=== PATIENT | male | born 1970 | race Caucasian/White ===

== ENCOUNTER 2016-09-30 15:29 | Emergency (ER) | payer OTHER ==
[~2016-09-30 15:29] MED LIST: PERCOCET1 TA1 PO; VISTARIL25 MG PO
--- NOTE | 2016-09-30 16:57 | DIAGNOSTIC IMAGING REPORT ---
PROCEDURE: XR RIBS UNILAT W/PA CHEST-RT INDICATION: FALL TECHNIQUE: Two views of the right ribs with single PA view chest. COMPARISON: Chest 08/28/2015 FINDINGS: RIGHT RIBS: No displaced rib fractures. No suspicious rib lesions. CHEST: Normal cardiomediastinal contour. Clear lungs without pleural effusion, pneumothorax, or contusion. The other visible osseous structures are intact. IMPRESSION: 1. Intact right ribs. 2. Normal chest without radiographic evidence of trauma.
--- NOTE | 2016-09-30 17:21 | ED ORDER SUMMARY ---
..... Patient: JUSTINA HOUGH OrderSheet [facility] VisitID: [id number] [address] [place] [address] 45y, M Registration Date/Time: 09/30/2016 ORDER SHEET Weight: 81.6 kg (stated) Allergies: Hydrocodone GENERAL ORDERS: Ribs Unilat w PA Chest Right Urgent (16:02 09/30/2016 HBivens A.R.N.P.) (Ack 16:16 LTapper) (17:06 MCampbell) MEDICATION ORDERS: Ultram PO 50 mg (NOW) (17:20 09/30/2016 HBivens A.R.N.P.) (Ack 17:39 ABarnum R.N.) (17:48 SRoberts R.N.) IV FLUIDS: ORDER SHEET NOTES: [Electronically signed by Milagros Lugo R.N. (17:52 09/30/2016)] [Electronically signed by Malini Ortiz.R.N.P. (17:55 09/30/2016)] [Electronically locked/signed by Milagros Lugo R.N. (17:52 09/30/2016)]
--- NOTE | 2016-09-30 17:21 | ED NURSING NOTES ---
Clinical Report - Nurses [facility] [address] [place] [address] 09/30/2016 15:29 Patient: JUSTINA HOUGH TRIAGE Triage time 15:48 Sep 30 2016. Acuity: LEVEL 4. Chief Complaint: FALL (was walking his dog, and he went after a cat fell down on his right side). --15:54 Raheel, December, R.N. 15:48 09/30/16. BP: 118/80. HR: 125. RR: 19. O2 saturation: 99%. Temp: 98.4 F. Pain level now: 06/05. --15:54 Raheel, December, R.N. Chief Complaint: FALL, onto a concrete surface and the ground. --15:59 Raheel, December, R.N. Weight: 81.6 kg stated. Height/Length: 68 inches Per Patient. BMI: 27.4. --15:47 , December, R.N. Medications Hydrochlorothiazide Oral. --15:50 , December, R.N. Allergies Hydrocodone.(rash) --15:49 , December, R.N. History Arrived by private vehicle. Historian: patient. PAST MEDICAL HX: Tetanus status: up-to-date. Immunizations: up-to-date. SOCIAL HX: Never smoker. Occasional alcohol use; consumes four beers a week. No drug use. ABUSE ASSESSMENT: No report of abuse. --15:54 Raheel, December, R.N. Location of injuries: right elbow, right forearm and right wrist. This occurred (2 days ago). --15:59 [place], December, R.N. PROBLEMS: Hypertension. --15:50 Raheel, December, R.N. Interventions ID band on patient. To treatment room. --15:54 Raheel, December, R.N. PHYSICAL ASSESSMENT Ambulatory to room. GENERAL / NEURO / PSYCH: Alert. Oriented X 4. Appears in pain. HEENT: Pupils equal, round and reactive to light. Head non-tender. RESPIRATORY: Chest wall injury. Chest wall tenderness. ( Fall on right side pain with palpation). CVS: Normal heart rate and rhythm. Pulses within normal limits. Capillary refill less than 2 seconds. GI / : Abdomen soft and nontender. EXTREMITIES: Extremities exhibit normal ROM. Neuro-vascular status intact to the extremity. Right elbow: superficial abrasion. Right wrist: superficial abrasion. SKIN: Skin is warm and dry. ( right elbow/forearm/wrist abrasion from fall). --15:55 Cindy Pickering R.N. NURSING PROGRESS NOTES Reassurance given. Two patient identifiers checked. Call light placed in reach. Side rails up x 1. Bed placed in lowest position. Brakes of bed on. --15:55 Cindy Pickering R.N. Patient ready for evaluation- chart flagged. --15:56 Cindy Pickering R.N. 17:33 09/30/2016 Ultram (TraMADol HCl) PO 50 mg given. Allergies verified, confirmed 5 rights and sedative warning given to the patient. --17:48 Milagros Lugo R.N. DISPOSITION / DISCHARGE 17:45. Condition at departure: improved. No learning barriers present. Discharge instructions provided and reviewed with the patient and family. Reviewed medication(s) side effects, precautions, dosing and course information. Prescription(s) given to the patient. Patient verbalized understanding. Written instructions provided in Urdu. The patient was discharged home and accompanied by family. He left the Emergency Department ambulatory and via private vehicle. Family member driving. Medication list reviewed and validated. --17:51 Milagros Lugo R.N. 17:49 09/30/16. BP: 148/88. HR: 102. RR: 22. O2 saturation: 100%. Temp: deferred. Pain level now: 02/02. 15:48 09/30/16. BP: 118/80. HR: 125. RR: 19. O2 saturation: 99%. Temp: 98.4 F. Pain level now: 06/05. --17:51 Milagros Lugo R.N. Locked/Released at 09/30/2016 17:52 by Milagros Lugo R.N.
--- NOTE | 2016-09-30 17:21 | ED CLINICAL REPORT ---
Clinical Report - Physicians/Mid Levels [facility] [address] [place] [address] 09/30/2016 15:29 Patient: JUSTINA HOUGH Time Seen: 15:58; initial patient contact, initial documentation, patient care assumed. Arrived- By private vehicle. Historian- patient. HISTORY OF PRESENT ILLNESS Chief Complaint: FALL. Location of injuries- chest. The injury occurred 2 days ago. Fell while walking and landed on a concrete surface; tripped. Occurred at home. The patient complains of moderate pain. No blow to the head, neck pain or seizure. Not dazed. 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 REVIEW OF SYSTEMS The patient has had moderate right-sided chest pain. He has had mild difficulty breathing (hurts to breathe). There has been no dyspnea on exertion or at rest, paroxysmal nocturnal dyspnea or wheezing. All systems otherwise negative, except as recorded above. PAST HISTORY See nurses notes. PROBLEMS: Hypertension. --15:50 Raheel, Cindy, R.N. Tetanus immunization status is up-to-date. SOCIAL HISTORY Never smoker. Occasional alcohol use; consumes beer. No drug use. No recent travel. Is a local resident. FAMILY HISTORY No significant family medical history. ADDITIONAL NOTES The nursing notes have been reviewed with agreement regarding the chief complaint, HPI, ROS, PMH and patient medications and allergies. PHYSICAL EXAM Vital Signs: 09/30/2016 15:48 BP: 118/80. HR: 125. RR: 19. O2 saturation: 99%. Temp: 98.4 F. Pain level now: 910. Have been reviewed as abnormal and appear to be correct. Blood pressure normal. Tachycardic. Respiratory rate normal. Temperature normal. Oxygen saturation normal. Appearance: Alert. Oriented X3. No acute distress. Head: Head non-tender. No swelling of head. Eyes: Pupils equal, round and reactive to light. EOM intact. ENT: No dental injury. Pharynx normal. Neck: Painless ROM. Non-tender. CVS: Tachycardia (ventricular rate = 120). Heart sounds abnormal. Pulses normal. Respiratory: Chest wall injury: moderate tenderness located in the middle, lower, right and anterior chest. No swelling. No laceration. No abrasion. No ecchymosis. No deformity. No injury to the costal cartilage, sternum, manubrium or xiphoid. No splinting present. No paradoxical movement. Breath sounds abnormal. Chest nontender. Abdomen: No visible injury. Soft and nontender. Back: No tenderness. ROM normal. Skin: Skin intact. Skin warm and dry. Normal skin color. Normal skin turgor. Extremities: Normal inspection. Pelvis stable. Extremities atraumatic. No lower extremity edema. Neuro: Oriented X 3. No motor deficit. No sensory deficit. LABS, X-RAYS, AND EKG X-Rays: Rib series negative. Sternum / Ribs X-rays: (IMPRESSION: 1. Intact right ribs. 2. Normal chest without radiographic evidence of trauma. Electronically Final signed by:Goyo Salazar MD 09/30/2016 5:00:47 PM). The X-rays were interpreted by the radiologist and contemporaneously by me. PROGRESS AND PROCEDURES Patient counseled in person regarding the patient's stable condition, test results and diagnosis. 17:20. Differential Diagnosis: Other possible considerations: pneumo, contusion, rib fx. Above considerations are based on history and physical exam. Differential diagnosis was discussed with patient. Disposition: Discharged home in good and improved condition (17:21). Condition: good and stable. CLINICAL IMPRESSION Single contusion to the right anterior chest.No hematoma or skin abrasion. Fall on same level by tripping. INSTRUCTIONS Warnings: GENERAL WARNINGS: Return or contact your physician immediately if your condition worsens or changes unexpectedly, if not improving as expected, or if other problems arise. SPECIFICALLY, return if you develop numbness or incontinence of feces (loss of bowel control) or urine (loss of bladder control). Prescription Medications: Ultram 50 mg tablets: take 1-2 orally every 6 hours as needed for pain. Dispense twenty (20). No refills. Substitution is permissible. Follow-up: Follow up with your doctor in about three days as needed. Call for an appointment. Summary of care provided to patient. Understanding of the discharge instructions verbalized by patient. (Electronically signed by Malini Ortiz A.R.N.P. 09/30/2016 17:55)
--- NOTE | 2016-09-30 17:21 | ED ORDER SUMMARY ---
..... Patient: JUSTINA HOUGH OrderSheet [facility] VisitID: [id number] [address] [place] [address] 45y, M Registration Date/Time: 09/30/2016 ORDER SHEET Weight: 81.6 kg (stated) Allergies: Hydrocodone GENERAL ORDERS: Ribs Unilat w PA Chest Right Urgent (16:02 09/30/2016 HBivens A.R.N.P.) (Ack 16:16 LTapper) (17:06 MCampbell) MEDICATION ORDERS: Ultram PO 50 mg (NOW) (17:20 09/30/2016 HBivens A.R.N.P.) (Ack 17:39 ABarnum R.N.) (17:48 SRoberts R.N.) IV FLUIDS: ORDER SHEET NOTES: [Electronically signed by Milagros Lugo R.N. (17:52 09/30/2016)] [Electronically signed by Malini Ortiz.R.N.P. (17:55 09/30/2016)] [Electronically locked/signed by Milagros Lugo R.N. (17:52 09/30/2016)]
--- NOTE | 2016-09-30 17:21 | ED NURSING NOTES ---
Clinical Report - Nurses [facility] [address] [place] [address] 09/30/2016 15:29 Patient: JUSTINA HOUGH TRIAGE Triage time 15:48 Sep 30 2016. Acuity: LEVEL 4. Chief Complaint: FALL (was walking his dog, and he went after a cat fell down on his right side). --15:54 Raheel, December, R.N. 15:48 09/30/16. BP: 118/80. HR: 125. RR: 19. O2 saturation: 99%. Temp: 98.4 F. Pain level now: 06/05. --15:54 Raheel, December, R.N. Chief Complaint: FALL, onto a concrete surface and the ground. --15:59 Raheel, December, R.N. Weight: 81.6 kg stated. Height/Length: 68 inches Per Patient. BMI: 27.4. --15:47 , December, R.N. Medications Hydrochlorothiazide Oral. --15:50 , December, R.N. Allergies Hydrocodone.(rash) --15:49 , December, R.N. History Arrived by private vehicle. Historian: patient. PAST MEDICAL HX: Tetanus status: up-to-date. Immunizations: up-to-date. SOCIAL HX: Never smoker. Occasional alcohol use; consumes four beers a week. No drug use. ABUSE ASSESSMENT: No report of abuse. --15:54 Raheel, December, R.N. Location of injuries: right elbow, right forearm and right wrist. This occurred (2 days ago). --15:59 [place], December, R.N. PROBLEMS: Hypertension. --15:50 Raheel, December, R.N. Interventions ID band on patient. To treatment room. --15:54 Raheel, December, R.N. PHYSICAL ASSESSMENT Ambulatory to room. GENERAL / NEURO / PSYCH: Alert. Oriented X 4. Appears in pain. HEENT: Pupils equal, round and reactive to light. Head non-tender. RESPIRATORY: Chest wall injury. Chest wall tenderness. ( Fall on right side pain with palpation). CVS: Normal heart rate and rhythm. Pulses within normal limits. Capillary refill less than 2 seconds. GI / : Abdomen soft and nontender. EXTREMITIES: Extremities exhibit normal ROM. Neuro-vascular status intact to the extremity. Right elbow: superficial abrasion. Right wrist: superficial abrasion. SKIN: Skin is warm and dry. ( right elbow/forearm/wrist abrasion from fall). --15:55 Cindy Pickering R.N. NURSING PROGRESS NOTES Reassurance given. Two patient identifiers checked. Call light placed in reach. Side rails up x 1. Bed placed in lowest position. Brakes of bed on. --15:55 Cindy Pickering R.N. Patient ready for evaluation- chart flagged. --15:56 Cindy Pickering R.N. 17:33 09/30/2016 Ultram (TraMADol HCl) PO 50 mg given. Allergies verified, confirmed 5 rights and sedative warning given to the patient. --17:48 Milagros Lugo R.N. DISPOSITION / DISCHARGE 17:45. Condition at departure: improved. No learning barriers present. Discharge instructions provided and reviewed with the patient and family. Reviewed medication(s) side effects, precautions, dosing and course information. Prescription(s) given to the patient. Patient verbalized understanding. Written instructions provided in Swedish. The patient was discharged home and accompanied by family. He left the Emergency Department ambulatory and via private vehicle. Family member driving. Medication list reviewed and validated. --17:51 Milagros Lugo R.N. 17:49 09/30/16. BP: 148/88. HR: 102. RR: 22. O2 saturation: 100%. Temp: deferred. Pain level now: 02/02. 15:48 09/30/16. BP: 118/80. HR: 125. RR: 19. O2 saturation: 99%. Temp: 98.4 F. Pain level now: 06/05. --17:51 Milagros Lugo R.N. Locked/Released at 09/30/2016 17:52 by Milagros Lugo R.N.
--- NOTE | 2016-09-30 17:21 | ED CLINICAL REPORT ---
Clinical Report - Physicians/Mid Levels [facility] [address] [place] [address] 09/30/2016 15:29 Patient: JUSTINA HOUGH Time Seen: 15:58; initial patient contact, initial documentation, patient care assumed. Arrived- By private vehicle. Historian- patient. HISTORY OF PRESENT ILLNESS Chief Complaint: FALL. Location of injuries- chest. The injury occurred 2 days ago. Fell while walking and landed on a concrete surface; tripped. Occurred at home. The patient complains of moderate pain. No blow to the head, neck pain or seizure. Not dazed. (went to clinic pilot captain, orders to go to Prov for chest xray, pt came here instead). REVIEW OF SYSTEMS The patient has had moderate right-sided chest pain. He has had mild difficulty breathing (hurts to breathe). There has been no dyspnea on exertion or at rest, paroxysmal nocturnal dyspnea or wheezing. All systems otherwise negative, except as recorded above. PAST HISTORY See nurses notes. PROBLEMS: Hypertension. --15:50 Raheel, Cindy, R.N. Tetanus immunization status is up-to-date. SOCIAL HISTORY Never smoker. Occasional alcohol use; consumes beer. No drug use. No recent travel. Is a local resident. FAMILY HISTORY No significant family medical history. ADDITIONAL NOTES The nursing notes have been reviewed with agreement regarding the chief complaint, HPI, ROS, PMH and patient medications and allergies. PHYSICAL EXAM Vital Signs: 09/30/2016 15:48 BP: 118/80. HR: 125. RR: 19. O2 saturation: 99%. Temp: 98.4 F. Pain level now: 910. Have been reviewed as abnormal and appear to be correct. Blood pressure normal. Tachycardic. Respiratory rate normal. Temperature normal. Oxygen saturation normal. Appearance: Alert. Oriented X3. No acute distress. Head: Head non-tender. No swelling of head. Eyes: Pupils equal, round and reactive to light. EOM intact. ENT: No dental injury. Pharynx normal. Neck: Painless ROM. Non-tender. CVS: Tachycardia (ventricular rate = 120). Heart sounds abnormal. Pulses normal. Respiratory: Chest wall injury: moderate tenderness located in the middle, lower, right and anterior chest. No swelling. No laceration. No abrasion. No ecchymosis. No deformity. No injury to the costal cartilage, sternum, manubrium or xiphoid. No splinting present. No paradoxical movement. Breath sounds abnormal. Chest nontender. Abdomen: No visible injury. Soft and nontender. Back: No tenderness. ROM normal. Skin: Skin intact. Skin warm and dry. Normal skin color. Normal skin turgor. Extremities: Normal inspection. Pelvis stable. Extremities atraumatic. No lower extremity edema. Neuro: Oriented X 3. No motor deficit. No sensory deficit. LABS, X-RAYS, AND EKG X-Rays: Rib series negative. Sternum / Ribs X-rays: (IMPRESSION: 1. Intact right ribs. 2. Normal chest without radiographic evidence of trauma. Electronically Final signed by:Goyo Salazar MD 09/30/2016 5:00:47 PM). The X-rays were interpreted by the radiologist and contemporaneously by me. PROGRESS AND PROCEDURES Patient counseled in person regarding the patient's stable condition, test results and diagnosis. 17:20. Differential Diagnosis: Other possible considerations: pneumo, contusion, rib fx. Above considerations are based on history and physical exam. Differential diagnosis was discussed with patient. Disposition: Discharged home in good and improved condition (17:21). Condition: good and stable. CLINICAL IMPRESSION Single contusion to the right anterior chest.No hematoma or skin abrasion. Fall on same level by tripping. INSTRUCTIONS Warnings: GENERAL WARNINGS: Return or contact your physician immediately if your condition worsens or changes unexpectedly, if not improving as expected, or if other problems arise. SPECIFICALLY, return if you develop numbness or incontinence of feces (loss of bowel control) or urine (loss of bladder control). Prescription Medications: Ultram 50 mg tablets: take 1-2 orally every 6 hours as needed for pain. Dispense twenty (20). No refills. Substitution is permissible. Follow-up: Follow up with your doctor in about three days as needed. Call for an appointment. Summary of care provided to patient. Understanding of the discharge instructions verbalized by patient. (Electronically signed by Malini Ortiz A.R.N.P. 09/30/2016 17:55)
--- NOTE | 2016-09-30 17:56 | ED DISCHARGE INSTRUCTIONS ---
Patient: JUSTINA HOUGH General Instructions [facility] VisitID: [id number] [place] [address] 45y, M Registration Date/Time: 09/30/2016 Single contusion to the right anterior chest.No hematoma or skin abrasion. Fall on same level by tripping. INSTRUCTIONS Warnings: GENERAL WARNINGS: Return or contact your physician immediately if your condition worsens or changes unexpectedly, if not improving as expected, or if other problems arise. SPECIFICALLY, return if you develop numbness or incontinence of feces (loss of bowel control) or urine (loss of bladder control). Prescription Medications: Ultram 50 mg tablets: take 1-2 orally every 6 hours as needed for pain. Dispense twenty (20). No refills. Substitution is permissible. Follow-up: Follow up with your doctor in about three days as needed. Call for an appointment. Summary of care provided to patient. Understanding of the discharge instructions verbalized by patient. ADDITIONAL INFORMATION Mechanical Fall You have had a fall today. It appears that the cause is mechanical. That means that you slipped, tripped or lost your balance. If your fall had been due to fainting or a seizure, further tests would be required. Home Care: Rest today and resume your normal activities when you are feeling back to normal. If you were injured during the fall, follow the advice from your doctor regarding care of your injury. You may use acetaminophen (Tylenol) or ibuprofen (Motrin, Advil) to control pain, unless another pain medicine was prescribed. [NOTE: If you have chronic liver or kidney disease or ever had a stomach ulcer or GI bleeding, talk with your doctor before using these medicines.] Fall Prevention: Was there anything that caused your fall that can be fixed, removed, or replaced? Make your home safe by keeping walkways clear of objects you may trip over. Use non-slip pads under rugs. Do not walk in poorly lit areas. Do not stand on chairs or wobbly ladders. Use caution when reaching overhead or looking upward. This position can cause a loss of balance. Be sure your shoes fit properly, have non-slip bottoms and are in good condition. Be cautious when going up and down curbs, and walking on uneven sidewalks. If your balance is poor, consider using a cane or walker. Stay as active as you can. Balance, flexibility, strength, and endurance all come from exercise. They all play a role in preventing falls. Follow Up with your doctor or as advised by our staff. Get Prompt Medical Attention if any of the following occur: Repeated mechanical falls, or unexplained falls Dizziness, fainting or seizure Severe headache Chest pain or shortness of breath Palpitations (very rapid or very slow or irregular heartbeat) Blood in vomit, stools (black or red color) Weakness of an arm or leg or one side of the face Difficulty with speech or vision Chest Contusion Acontusion is a bruise to the skin, muscle or ribs. It may cause pain, tenderness, swelling and a purplish discoloration. Contusions take a few days to a few weeks to heal. Home Care: Rest. You should not be doing any heavy lifting or strenuous exertion, or any activity that causes pain. You may use acetaminophen (Tylenol) or ibuprofen (Motrin, Advil) to control pain, unless another pain medicine was prescribed. [ NOTE: If you have chronic liver or kidney disease or ever had a stomach ulcer or GI bleeding, talk with your doctor before using these medicines.] Follow Up with your doctor during the next week or as directed. Get Prompt Medical Attention if any of the following occur: Shortness of breath Increasing chest pain with breathing Dizziness, weakness or fainting New or worsening of abdominal pain Fever of 100.4F (38C) or higher, or as directed by your healthcare provider Tramadol Hydrochloride Oral tablet What is this medicine? TRAMADOL (TRA ma dole) is a pain reliever. It is used to treat moderate to severe pain in adults. How should I use this medicine? Take this medicine by mouth with a full glass of water. Follow the directions on the prescription label. If the medicine upsets your stomach, take it with food or milk. Do not take more medicine than you are told to take. Talk to your white metal corrosion proofer regarding the use of this medicine in children. Special care may be needed. What side effects may I notice from receiving this medicine? Side effects that you should report to your doctor or health career development facilitator as soon as possible: allergic reactions like skin rash, itching or hives, swelling of the face, lips, or tongue breathing difficulties, wheezing confusion itching light headedness or fainting spells redness, blistering, peeling or loosening of the skin, including inside the mouth seizures Side effects that usually do not require medical attention (report to your doctor or health career development facilitator if they continue or are bothersome): constipation dizziness drowsiness headache nausea, vomiting What may interact with this medicine? Do not take this medicine with any of the following medications: MAOIs like Carbex, Eldepryl, Marplan, Nardil, and Parnate This medicine may also interact with the following medications: alcohol or medicines that contain alcohol antihistamines benzodiazepines bupropion carbamazepine or oxcarbazepine clozapine cyclobenzaprine digoxin furazolidone linezolid medicines for depression, anxiety, or psychotic disturbances medicines for migraine headache like almotriptan, eletriptan, frovatriptan, naratriptan, rizatriptan, sumatriptan, zolmitriptan medicines for pain like pentazocine, buprenorphine, butorphanol, meperidine, nalbuphine, and propoxyphene medicines for sleep muscle relaxants naltrexone phenobarbital phenothiazines like perphenazine, thioridazine, chlorpromazine, mesoridazine, fluphenazine, prochlorperazine, promazine, and trifluoperazine procarbazine warfarin What if I miss a dose? If you miss a dose, take it as soon as you can. If it is almost time for your next dose, take only that dose. Do not take double or extra doses. Where should I keep my medicine? Keep out of the reach of children. Store at room temperature between 15 and 30 degrees C (59 and 86 degrees F). Keep container tightly closed. Throw away any unused medicine after the expiration date. What should I tell my health care provider before I take this medicine? They need to know if you have any of these conditions: brain tumor depression drug abuse or addiction head injury if you frequently drink alcohol containing drinks kidney disease or trouble passing urine liver disease lung disease, asthma, or breathing problems seizures or epilepsy suicidal thoughts, plans, or attempt; a previous suicide attempt by you or a family member an unusual or allergic reaction to tramadol, codeine, other medicines, foods, dyes, or preservatives or trying to get breast-feeding What should I watch for while using this medicine? Tell your doctor or health career development facilitator if your pain does not go away, if it gets worse, or if you have new or a different type of pain. You may develop tolerance to the medicine. Tolerance means that you will need a higher dose of the medicine for pain relief. Tolerance is normal and is expected if you take this medicine for a long time. Do not suddenly stop taking your medicine because you may develop a severe reaction. Your body becomes used to the medicine. This does NOT mean you are addicted. Addiction is a behavior related to getting and using a drug for a non-medical reason. If you have pain, you have a medical reason to take pain medicine. Your doctor will tell you how much medicine to take. If your doctor wants you to stop the medicine, the dose will be slowly lowered over time to avoid any side effects. You may get drowsy or dizzy. Do not drive, use machinery, or do anything that needs mental alertness until you know how this medicine affects you. Do not stand or sit up quickly, especially if you are an older patient. This reduces the risk of dizzy or fainting spells. Alcohol can increase or decrease the effects of this medicine. Avoid alcoholic drinks. You may have constipation. Try to have a bowel movement at least every 2 to 3 days. If you do not have a bowel movement for 3 days, call your doctor or health career development facilitator. Your mouth may get dry. Chewing sugarless gum or sucking hard candy, and drinking plenty of water may help. Contact your doctor if the problem does not go away or is severe. You have been given the following additional information: Fall, Mechanical Chest Wall Contusion Tramadol Hydrochloride Oral tablet (Electronically signed by Malini Ortiz A.R.N.P. 09/30/2016 17:55)
--- NOTE | 2016-09-30 17:56 | ED MED RECONCILIATION SUMMARY ---
Patient: JUSTINA HOUGH Medication Reconciliation Report [facility] VisitID: [id number] [address] [place] [address] 45y, M Registration Date/Time: 09/30/2016 Weight: 81.6 kg Height/Length: 68 in. BMI: 27.4 ALLERGIES: Hydrocodone The patient's Home Medications are listed below: THE FOLLOWING MEDICATIONS NEED TO BE RECONCILED: Hydrochlorothiazide Oral The source(s) of the original Home Medication information: Not obtained. The following Medications were given to the patient in the Emergency Department: Ultram [PO] PO 50 mg, administered: 09/30/2016 5:33:00 PM The following Medications were prescribed to the patient: Ultram 50 mg tablets: take 1-2 orally every 6 hours as needed for pain. Dispense twenty (20). No refills. Substitution is permissible. -- Malini Ortiz A.R.N.P.
--- NOTE | 2016-09-30 17:56 | ED MAR SUMMARY ---
..... Medication Administration Record [facility] [address] [place] [address] Patient: JUSTINA HOUGH Visit ID: [id number] 45y, M Weight: 81.6 kg Height/Length: 68 in BMI: 27.4 ALLERGIES: Hydrocodone Given 17:33 09/30/2016 Milagros Lugo R.N. Medication Administered: ULTRAM [PO] (TRAMADOL HCL), Dose: 50 mg PO. Medication Ordered: Ultram PO 50 mg (NOW).
--- NOTE | 2016-09-30 17:56 | ED MAR SUMMARY ---
..... Medication Administration Record [facility] [address] [place] [address] Patient: JUSTINA HOUGH Visit ID: [id number] 45y, M Weight: 81.6 kg Height/Length: 68 in BMI: 27.4 ALLERGIES: Hydrocodone Given 17:33 09/30/2016 Milagros Lugo R.N. Medication Administered: ULTRAM [PO] (TRAMADOL HCL), Dose: 50 mg PO. Medication Ordered: Ultram PO 50 mg (NOW).
--- NOTE | 2016-09-30 17:56 | ED MED RECONCILIATION SUMMARY ---
Patient: JUSTINA HOUGH Medication Reconciliation Report [facility] VisitID: [id number] [address] [place] [address] 45y, M Registration Date/Time: 09/30/2016 Weight: 81.6 kg Height/Length: 68 in. BMI: 27.4 ALLERGIES: Hydrocodone The patient's Home Medications are listed below: THE FOLLOWING MEDICATIONS NEED TO BE RECONCILED: Hydrochlorothiazide Oral The source(s) of the original Home Medication information: Not obtained. The following Medications were given to the patient in the Emergency Department: Ultram [PO] PO 50 mg, administered: 09/30/2016 5:33:00 PM The following Medications were prescribed to the patient: Ultram 50 mg tablets: take 1-2 orally every 6 hours as needed for pain. Dispense twenty (20). No refills. Substitution is permissible. -- Malini Ortiz A.R.N.P.
== END 2016-09-30 17:45 | disposition home or self-care (01) ==
LOC: ED SRH 15:29
DX: S20.211A Contusion of right front wall of thorax, initial encounter (principal); W01.0XXA Fall on same level from slipping, tripping and stumbling without subsequent striking against object, initial encounter; Y93.01 Activity, walking, marching and hiking; Y92.009 Unspecified place in unspecified non-institutional (private) residence as the place of occurrence of the external cause; Y99.9 Unspecified external cause status; I10 Essential (primary) hypertension

== ENCOUNTER 2016-12-27 11:46 | Emergency (ER) | payer OTHER ==
--- NOTE | 2016-12-27 13:29 | DIAGNOSTIC IMAGING REPORT ---
PROCEDURE: XR HAND 3 OR 4 VIEWS - LEFT INDICATION: TRAUMA/INJURY TECHNIQUE: Four views. COMPARISON: None. FINDINGS: There is a fracture of the base of the middle phalanx of the fifth digit. There is also fracture through the base of the distal phalanx of the fourth digit. IMPRESSION: 1. Fractures of the fourth and fifth digits left hand.
--- NOTE | 2016-12-27 14:07 | ED CLINICAL REPORT ---
Clinical Report - Physicians/Mid Levels [facility] [address] [place] [address] 12/27/2016 11:46 [id number] Time Seen: 13:02 Dec 27 2016. Arrived- By private vehicle. Historian- patient. HISTORY OF PRESENT ILLNESS Chief Complaint: Injury to the left hand. 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 Occurred at home. Patient is experiencing moderate pain. Patient denies injury to the head or neck. ( 2 days prior to arrival on the first, patient sustained a twisting type of extension injury from a chain to his left fifth digit. 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 He is right-hand dominant. He has pain with any attempt of movement, he denies any paresthesias, denies laceration. Has iced, and take nsaid. He reports prior injury to his left fourth digit, his ring finger about 2 months previously, from a crush type of injury, never saw or had follow-up for such.). REVIEW OF SYSTEMS All systems otherwise negative, except as recorded above. PAST HISTORY The patient's dominant hand is the right. He has not had a prior injury to the same area. Problems: Contusion. Fall. Back Pain. Back Injury. Lumbar Strain. Lumbar Radiculopathy. Sciatica. Sprain. Rib Fracture. Cervical Strain. Myofascial Strain. Muscle Strain, Upper Extremity. Tetanus Status. Immunizations. Hypertension. Additional Surgeries: Eye surgery. Medications: Hydrochlorothiazide Oral. Allergies: Hydrocodone.(rash). SOCIAL HISTORY Regular alcohol use. History of drug use: marijuana. ADDITIONAL NOTES The nursing notes have been reviewed. PHYSICAL EXAM Vital Signs: 12/27/2016 12:14 BP: 165/101. HR: 106. RR: 20. O2 saturation: 99%. Temp: 98.2 F. Appearance: Alert. No apparent distress. Head: Head atraumatic. CVS: Normal heart rate and rhythm. Heart sounds normal. Respiratory: No respiratory distress. Breath sounds normal. Skin: Skin warm. Skin intact. Extremities: Left palm: No erythema or swelling. Left ring finger: mild tenderness of the DIP joint; limited movement secondary to pain (diminished flexion and extension) (at dip). Tip of left ring finger: mild tenderness subungual hematoma present. No swelling, laceration of tip of left ring finger, puncture wound or foreign body. No nail avulsion or exposed bone on the left ring finger or tip amputation of the left ring finger. Left little finger: moderate deformity consistent with a fracture and dislocation of the PIP joint (swelling, mild ecchymosis, no rom at pip/ dip. fair rom at MCP). No amputation present. Soft tissue tenderness present. Bony tenderness present. No signs of infection present. No wrist injury. Neuro, Vascular and Tendons: Vascular status intact. No pulse deficit present. Sensation intact. No sensory deficit or weakness. Neuro: Oriented X 3. PROGRESS AND PROCEDURES Splint Application: Time: 1355. Aluminum-foam volar splint applied to left finger. Splint applied by tech with direct supervision by me. Reassessed extremity following splint application. Neurovascular intact. Follow-up recommended for tomorrow. Course of Care: I discussed with DR. Cuellar (ORTHO ) space systems operations craftsman in ER, prefers f/u with hand surgeon I discussed case with Dr. Jeffery Mack, [facility], who reports he will see patient in his office tomorrow. Pt for splint. No signs of open fx. Patient is stable. Patient/family counseled. Disposition: Discharged. CLINICAL IMPRESSION Closed displaced middle phalanx fracture of the left little finger. Hypertension. Closed Left Ring Finger (Sub-acute Fx) Displaced. INSTRUCTIONS Apply ice. Elevate affected areas above chest level. Limit use of your left hand for seven days. Do not work for seven days. (12/28 12:[address] MACK [address] [place] [address]: [phone]). Prescription Medications: Ibuprofen 800 mg tablets: take 1 tablet orally every 8 hours as needed for pain. Dispense ten (10). No refill. Percocet 5 mg/325 mg: take 1 tablet orally every 6 hours as needed for pain. Dispense five (5). No refill. Substitution is permissible. Follow-up: Follow up with a specialist TOMORROW 12:45. (Electronically signed by Isha Hernandez P.A.-C 12/27/2016 14:34)
--- NOTE | 2016-12-27 14:07 | ED ORDER SUMMARY ---
..... Patient: JUSTINA HOUGH OrderSheet [facility] VisitID: [id number] [address] [place] [address] 46y, M Registration Date/Time: 12/27/2016 ORDER SHEET Weight: 83.9 kg (stated) Allergies: Hydrocodone GENERAL ORDERS: Hand 3 or 4V Left Urgent (12:20 12/27/2016 DMaziarka R.N. per protocol) (Ack 12:23 ADoerner) (14:01 DMaziarka R.N.) (14:01 KHoerner) Splint (Finger) (Left) (Small) (Aluminum Foam) (in full extension of 5th digit, shelly tape 4th digit to it as well) (13:33 12/27/2016 EKpurvilecarlos enrique P.A.-C) (14:01 DMaziarka R.N.) (14:01 ADoerner) MEDICATION ORDERS: Percocet PO 5/325 mg (HIGH ALERT MEDICATION, NOW) (13:39 12/27/2016 EKpurvilecarlos enrique P.A.-C) (Ack 14:01 DMaziarka R.N.) (14:17 DMaziarka R.N.) IV FLUIDS: ORDER SHEET NOTES: [Electronically signed by Vianney Willoughby R.N. (14:19 12/27/2016)] [Electronically signed by Isha Hernandez P.A.-C (14:34 12/27/2016)] [Electronically locked/signed by Vianney Willoughby R.N. (14:19 12/27/2016)]
--- NOTE | 2016-12-27 14:07 | ED NURSING NOTES ---
Clinical Report - Nurses [facility] [address] [place] [address] 12/27/2016 11:46 Patient: JUSTINA HOUGH TRIAGE Triage time 12:15. Acuity: LEVEL 4. Chief Complaint: INJURY TO LEFT HAND. Alert. --12:17 Vianney Willoughby R.N. 12:14 12/27/16. BP: 165/101. HR: 106. RR: 20. O2 saturation: 99%. Temp: 98.2 F. Pain level now 04/04. --12:17 Vianney Willoughby R.N. Weight: 83.9 kg stated. Height/Length: 68 inches Per Patient. BMI: 28.1. --12:15 Vianney Willoughby R.N. Medications Hydrochlorothiazide Oral. --12:16 Vianney Willoughby R.N. Allergies Hydrocodone.(rash) --12:16 Vianney Willoughby R.N. History Arrived by private vehicle. Primary physician (Jeanmarie). This occurred (about 2 days). Mechanism of injury: he sustained a twisting injury. Treatment VALIDATION MANAGER: Ice. PAST MEDICAL HX: Tetanus status: up-to-date. SOCIAL HX: Regular alcohol use. History of weekly drug use: marijuana. --12:17 Vianney Willoughby R.N. PROBLEMS: Contusion. Fall. Back Pain. Back Injury. Lumbar Strain. Lumbar Radiculopathy. Sciatica. Sprain. Cervical Strain. Myofascial Strain. Muscle Strain, Upper Extremity. Tetanus Status. Immunizations. Hypertension. --12:17 Vianney Willoughby R.N. ADDITIONAL SURGERIES: Eye surgery. --12:17 Vianney Willoughby R.N. PHYSICAL ASSESSMENT Ambulatory to room. GENERAL / NEURO / PSYCH: Oriented X 4. Alert. Appears in no acute distress. EXTREMITIES: Capillary refill is less than 2 seconds in the extremities. Hypothenar eminence, left hand: tenderness and swelling. SKIN: Skin intact. Skin is warm and dry. --12:18 Vianney Willoughby R.N. NURSING PROGRESS NOTES Two patient identifiers checked. Call light placed in reach. Side rails up x 1. Brakes of chair on. Patient ready for evaluation- ED physician notified. --12:18 Vianney Willoughby R.N. 14:17 12/27/2016 Percocet (Oxycodone-Acetaminophen) PO 10/650 mg Tablets 1 tab given. Allergies verified, confirmed 5 rights and sedative warning given to the patient. --14:17 Vianney Willoughby R.N. Aluminum-foam finger splint applied to left ring finger and little finger by tech. --14:18 Jaja Tai, ER Tech1. DISPOSITION / DISCHARGE Departure time: 14:17. Condition at departure: improved. No learning barriers present. Discharge instructions provided and reviewed with the patient. Patient verbalized understanding. Written instructions provided in [place]. The patient was discharged home and accompanied by spouse. He left the Emergency Department ambulatory and via private vehicle. Spouse driving. --14:17 Vianney Willoughby R.N. 14:13 12/27/16. BP: 142/65. HR: 80. RR: 16. O2 saturation: 98%. Pain level now 4/10. --14:17 Vianney Willoughby R.N. Locked/Released at 12/27/2016 14:19 by Vianney Willoughby R.N.
--- NOTE | 2016-12-27 14:07 | ED CLINICAL REPORT ---
Clinical Report - Physicians/Mid Levels [facility] [address] [place] [address] 12/27/2016 11:46 [id number] Time Seen: 13:02 Dec 27 2016. Arrived- By private vehicle. Historian- patient. HISTORY OF PRESENT ILLNESS Chief Complaint: Injury to the left hand. 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 Occurred at home. Patient is experiencing moderate pain. Patient denies injury to the head or neck. ( 2 days prior to arrival on the first, patient sustained a twisting type of extension injury from a chain to his left fifth digit. 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 He is right-hand dominant. He has pain with any attempt of movement, he denies any paresthesias, denies laceration. Has iced, and take nsaid. He reports prior injury to his left fourth digit, his ring finger about 2 months previously, from a crush type of injury, never saw or had follow-up for such.). REVIEW OF SYSTEMS All systems otherwise negative, except as recorded above. PAST HISTORY The patient's dominant hand is the right. He has not had a prior injury to the same area. Problems: Contusion. Fall. Back Pain. Back Injury. Lumbar Strain. Lumbar Radiculopathy. Sciatica. Sprain. Rib Fracture. Cervical Strain. Myofascial Strain. Muscle Strain, Upper Extremity. Tetanus Status. Immunizations. Hypertension. Additional Surgeries: Eye surgery. Medications: Hydrochlorothiazide Oral. Allergies: Hydrocodone.(rash). SOCIAL HISTORY Regular alcohol use. History of drug use: marijuana. ADDITIONAL NOTES The nursing notes have been reviewed. PHYSICAL EXAM Vital Signs: 12/27/2016 12:14 BP: 165/101. HR: 106. RR: 20. O2 saturation: 99%. Temp: 98.2 F. Appearance: Alert. No apparent distress. Head: Head atraumatic. CVS: Normal heart rate and rhythm. Heart sounds normal. Respiratory: No respiratory distress. Breath sounds normal. Skin: Skin warm. Skin intact. Extremities: Left palm: No erythema or swelling. Left ring finger: mild tenderness of the DIP joint; limited movement secondary to pain (diminished flexion and extension) (at dip). Tip of left ring finger: mild tenderness subungual hematoma present. No swelling, laceration of tip of left ring finger, puncture wound or foreign body. No nail avulsion or exposed bone on the left ring finger or tip amputation of the left ring finger. Left little finger: moderate deformity consistent with a fracture and dislocation of the PIP joint (swelling, mild ecchymosis, no rom at pip/ dip. fair rom at MCP). No amputation present. Soft tissue tenderness present. Bony tenderness present. No signs of infection present. No wrist injury. Neuro, Vascular and Tendons: Vascular status intact. No pulse deficit present. Sensation intact. No sensory deficit or weakness. Neuro: Oriented X 3. PROGRESS AND PROCEDURES Splint Application: Time: 1355. Aluminum-foam volar splint applied to left finger. Splint applied by tech with direct supervision by me. Reassessed extremity following splint application. Neurovascular intact. Follow-up recommended for tomorrow. Course of Care: I discussed with DR. Cuellar (ORTHO ) rangelands conservation laborer in ER, prefers f/u with hand surgeon I discussed case with Dr. Jeffery Mack, [facility], who reports he will see patient in his office tomorrow. Pt for splint. No signs of open fx. Patient is stable. Patient/family counseled. Disposition: Discharged. CLINICAL IMPRESSION Closed displaced middle phalanx fracture of the left little finger. Hypertension. Closed Left Ring Finger (Sub-acute Fx) Displaced. INSTRUCTIONS Apply ice. Elevate affected areas above chest level. Limit use of your left hand for seven days. Do not work for seven days. (12/28 12:[address] MACK [address] [place] [address]: [phone]). Prescription Medications: Ibuprofen 800 mg tablets: take 1 tablet orally every 8 hours as needed for pain. Dispense ten (10). No refill. Percocet 5 mg/325 mg: take 1 tablet orally every 6 hours as needed for pain. Dispense five (5). No refill. Substitution is permissible. Follow-up: Follow up with a specialist TOMORROW 12:45. (Electronically signed by Isha Hernandez P.A.-C 12/27/2016 14:34)
--- NOTE | 2016-12-27 14:07 | ED NURSING NOTES ---
Clinical Report - Nurses [facility] [address] [place] [address] 12/27/2016 11:46 Patient: JUSTINA HOUGH TRIAGE Triage time 12:15. Acuity: LEVEL 4. Chief Complaint: INJURY TO LEFT HAND. Alert. --12:17 Vianney Willoughby R.N. 12:14 12/27/16. BP: 165/101. HR: 106. RR: 20. O2 saturation: 99%. Temp: 98.2 F. Pain level now 04/04. --12:17 Vianney Willoughby R.N. Weight: 83.9 kg stated. Height/Length: 68 inches Per Patient. BMI: 28.1. --12:15 Vianney Willoughby R.N. Medications Hydrochlorothiazide Oral. --12:16 Vianney Willoughby R.N. Allergies Hydrocodone.(rash) --12:16 Vianney Willoughby R.N. History Arrived by private vehicle. Primary physician (Jeanmarie). This occurred (about 2 days). Mechanism of injury: he sustained a twisting injury. 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 PAST MEDICAL HX: Tetanus status: up-to-date. SOCIAL HX: Regular alcohol use. History of weekly drug use: marijuana. --12:17 Vianney Willoughby R.N. PROBLEMS: Contusion. Fall. Back Pain. Back Injury. Lumbar Strain. Lumbar Radiculopathy. Sciatica. Sprain. Cervical Strain. Myofascial Strain. Muscle Strain, Upper Extremity. Tetanus Status. Immunizations. Hypertension. --12:17 Vianney Willoughby R.N. ADDITIONAL SURGERIES: Eye surgery. --12:17 Vianney Willoughby R.N. PHYSICAL ASSESSMENT Ambulatory to room. GENERAL / NEURO / PSYCH: Oriented X 4. Alert. Appears in no acute distress. EXTREMITIES: Capillary refill is less than 2 seconds in the extremities. Hypothenar eminence, left hand: tenderness and swelling. SKIN: Skin intact. Skin is warm and dry. --12:18 Vianney Willoughby R.N. NURSING PROGRESS NOTES Two patient identifiers checked. Call light placed in reach. Side rails up x 1. Brakes of chair on. Patient ready for evaluation- ED physician notified. --12:18 Vianney Willoughby R.N. 14:17 12/27/2016 Percocet (Oxycodone-Acetaminophen) PO 10/650 mg Tablets 1 tab given. Allergies verified, confirmed 5 rights and sedative warning given to the patient. --14:17 Vianney Willoughby R.N. Aluminum-foam finger splint applied to left ring finger and little finger by tech. --14:18 Jaja Tai, ER Tech1. DISPOSITION / DISCHARGE Departure time: 14:17. Condition at departure: improved. No learning barriers present. Discharge instructions provided and reviewed with the patient. Patient verbalized understanding. Written instructions provided in Tristanian. The patient was discharged home and accompanied by spouse. He left the Emergency Department ambulatory and via private vehicle. Spouse driving. --14:17 Vianney Willoughby R.N. 14:13 12/27/16. BP: 142/65. HR: 80. RR: 16. O2 saturation: 98%. Pain level now 4/10. --14:17 Vianney Willoughby R.N. Locked/Released at 12/27/2016 14:19 by Vianney Willoughby R.N.
--- NOTE | 2016-12-27 14:07 | ED ORDER SUMMARY ---
..... Patient: JUSTINA HOUGH OrderSheet [facility] VisitID: [id number] [address] [place] [address] 46y, M Registration Date/Time: 12/27/2016 ORDER SHEET Weight: 83.9 kg (stated) Allergies: Hydrocodone GENERAL ORDERS: Hand 3 or 4V Left Urgent (12:20 12/27/2016 DMaziarka R.N. per protocol) (Ack 12:23 ADoerner) (14:01 DMaziarka R.N.) (14:01 KHoerner) Splint (Finger) (Left) (Small) (Aluminum Foam) (in full extension of 5th digit, shelly tape 4th digit to it as well) (13:33 12/27/2016 EKpurvilecarlos enrique P.A.-C) (14:01 DMaziarka R.N.) (14:01 ADoerner) MEDICATION ORDERS: Percocet PO 5/325 mg (HIGH ALERT MEDICATION, NOW) (13:39 12/27/2016 EKpurvilecarlos enrique P.A.-C) (Ack 14:01 DMaziarka R.N.) (14:17 DMaziarka R.N.) IV FLUIDS: ORDER SHEET NOTES: [Electronically signed by Vianney Willoughby R.N. (14:19 12/27/2016)] [Electronically signed by Isha Hernandez P.A.-C (14:34 12/27/2016)] [Electronically locked/signed by Vianney Willoughby R.N. (14:19 12/27/2016)]
--- NOTE | 2016-12-27 14:34 | ED DISCHARGE INSTRUCTIONS ---
Patient: JUSTINA HOUGH General Instructions [facility] VisitID: [id number] [place] [address] 46y, M Registration Date/Time: 12/27/2016 Closed displaced middle phalanx fracture of the left little finger. Hypertension. Closed Left Ring Finger (Sub-acute Fx) Displaced. INSTRUCTIONS Apply ice. Elevate affected areas above chest level. Limit use of your left hand for seven days. Do not work for seven days. (12/28 12:[address] FREDERICK [facility]: [phone]). Prescription Medications: Ibuprofen 800 mg tablets: take 1 tablet orally every 8 hours as needed for pain. Dispense ten (10). No refill. Percocet 5 mg/325 mg: take 1 tablet orally every 6 hours as needed for pain. Dispense five (5). No refill. Substitution is permissible. Follow-up: Follow up with a specialist TOMORROW 12:45. ADDITIONAL INFORMATION Fracture: Finger [Closed] You have a fracture of your finger (broken finger). This causes local pain, swelling and bruising. This injury takes about four weeks to heal. Finger injuries are often treated with a splint, cast or by taping the injured finger to the next one ("shelly taping"). This protects the injured finger and holds the bone in position while it heals. More serious fractures may require surgery. If the FINGERNAIL has been severely injured, it will probably fall off in 1-2 weeks. A new fingernail will usually start to grow back within a month. Home Care: 1) Keep your hand elevated to reduce pain and swelling. When sitting or lying down elevate your arm above the level of your heart. You can do this by placing your arm on a pillow that rests on your chest or on a pillow at your side. This is most important during the first 48 hours after injury. 2) Apply an ice pack (ice cubes in a plastic bag, wrapped in a towel) over the injured area for 20 minutes every 1-2 hours the first day for pain relief. Continue this 3-4 times a day until the pain and swelling goes away. 3) Keep the cast/splint completely dry at all times. Bathe with your cast/splint out of the water, protected with a large plastic bag, rubber-banded at the top end. If a fiberglass cast/splint gets wet, you can dry it with a hair-dryer. 4) If shelly tape was applied and it becomes wet or dirty, change it. You may replace it with paper, plastic or cloth tape. Cloth tape and paper tapes must be kept dry. Keep the shelly tape in place for at least four weeks. 5) You may use acetaminophen (Tylenol) or ibuprofen (Motrin, Advil) to control pain, unless another pain medicine was prescribed. [ NOTE : If you have chronic liver or kidney disease or ever had a stomach ulcer or GI bleeding, talk with your doctor before using these medicines.] Follow Up with your doctor within one week, or as advised by our staff, to be sure the bone is healing properly, . [NOTE: A radiologist will review any X-rays that were taken. We will notify you of any new findings that may affect your care.] Get Prompt Medical Attention if any of the following occur: -- The plaster cast or splint becomes wet or soft -- The fiberglass cast or splint remains wet for more than 24 hours -- Pain or swelling increases -- Redness, warmth, swelling, drainage from the wound or foul odor from a cast or splint -- Finger becomes more cold, blue, numb or tingly High Blood Pressure --Established High Blood Pressure (Hypertension) is a chronic disease. The cause is unknown in most cases. It can usually be controlled with lifestyle changes and/or medicines. Symptoms of high blood pressure may include headache, dizziness, visual changes, chest pain and shortness of breath. Sometimes it causes no symptoms at all. However, even if there are no symptoms, untreated high blood pressure increases the risk of heart attack, also known as acute myocardial infarction, or AMI, and stroke. It is a serious health risk and should not be ignored. A normal blood pressure is 120/80 or less. The first (top) number is the "systolic" pressure. The second (bottom) number is the "diastolic" pressure. Hypertension exists when either the top number is 140 or higher, OR the bottom number is 90 or higher on repeated measurements. Home Care: All patients with high blood pressure should do the following to lower their pressure. If you are on medicines, then these methods may reduce or eliminate your need for medicines in the future. Begin a weight loss program if you are overweight. Reduce your salt intake. Avoid high salt foods (olives, pickles, smoked meats, salted potato chips, etc.). Do not add salt to your food at the table. Use only small amounts of salt when cooking. Begin an exercise program. Discuss with your doctor what type of exercise program would be best for you. It doesn't have to be difficult. Even brisk walking for 20 minutes three times a week is a good form of exercise. Avoid medicines which contain heart stimulants. This includes many cold and sinus decongestant pills and sprays as well as diet pills. Check the warnings about hypertension on the label. Stimulants such as amphetamine or cocaine could be lethal for someone with hypertension. Never take these. Limit your caffeine intake or switch to caffeine-free products. Stop smoking. If you are a long-time smoker, this can be hard. Enroll in a stop-smoking program to improve your chance of success. Learning how to handle stress better is an important part of any program to lower blood pressure. Learn about relaxation methods such as meditation, yoga or biofeedback. If medicines were prescribed, take them exactly as directed. Missing doses may cause your blood pressure get out of control. Consider buying an automatic blood pressure machine (available at most pharmacies). Use this to monitor your blood pressure at home and report the results to your doctor. Follow Up: Regular visits to your own physician for blood pressure checks and medicine adjustment is an important part of your care. Make a follow-up appointment as directed by our staff. Get Prompt Medical Attention if any of the following occur: Chest pain or shortness of breath Severe headache Throbbing or rushing sound in the ears Nosebleed Sudden severe abdominal pain Extreme drowsiness, confusion or fainting Dizziness or vertigo (dizziness with spinning sensation) Weakness of an arm or leg or one side of the face Difficulty with speech or vision Oxycodone Hydrochloride, Acetaminophen Oral tablet What is this medicine? ACETAMINOPHEN; OXYCODONE (a set a EDILIA shawna fen; ox i KOE done) is a pain reliever. It is used to treat mild to moderate pain. How should I use this medicine? Take this medicine by mouth with a full glass of water. Follow the directions on the prescription label. Take your medicine at regular intervals. Do not take your medicine more often than directed. Talk to your motion pictures cartoonist regarding the use of this medicine in children. Special care may be needed. Patients over 65 years old may have a stronger reaction and need a smaller dose. What side effects may I notice from receiving this medicine? Side effects that you should report to your doctor or health medicare sales representative as soon as possible: allergic reactions like skin rash, itching or hives, swelling of the face, lips, or tongue breathing difficulties, wheezing confusion light headedness or fainting spells severe stomach pain yellowing of the skin or the whites of the eyes Side effects that usually do not require medical attention (report to your doctor or health medicare sales representative if they continue or are bothersome): dizziness drowsiness nausea vomiting What may interact with this medicine? alcohol antihistamines barbiturates like amobarbital, butalbital, butabarbital, methohexital, pentobarbital, phenobarbital, thiopental, and secobarbital benztropine drugs for bladder problems like solifenacin, trospium, oxybutynin, tolterodine, hyoscyamine, and methscopolamine drugs for breathing problems like ipratropium and tiotropium drugs for certain stomach or intestine problems like propantheline, homatropine methylbromide, glycopyrrolate, atropine, belladonna, and dicyclomine general anesthetics like etomidate, ketamine, nitrous oxide, propofol, desflurane, enflurane, halothane, isoflurane, and sevoflurane medicines for depression, anxiety, or psychotic disturbances medicines for sleep muscle relaxants naltrexone narcotic medicines (opiates) for pain phenothiazines like perphenazine, thioridazine, chlorpromazine, mesoridazine, fluphenazine, prochlorperazine, promazine, and trifluoperazine scopolamine tramadol trihexyphenidyl What if I miss a dose? If you miss a dose, take it as soon as you can. If it is almost time for your next dose, take only that dose. Do not take double or extra doses. Where should I keep my medicine? Keep out of the reach of children. This medicine can be abused. Keep your medicine in a safe place to protect it from theft. Do not share this medicine with anyone. Selling or giving away this medicine is dangerous and against the law. Store at room temperature between 20 and 25 degrees C (68 and 77 degrees F). Keep container tightly closed. Protect from light. This medicine may cause accidental overdose and if it is taken by other adults, children, or pets. Flush any unused medicine down the toilet to reduce the chance of harm. Do not use the medicine after the expiration date. What should I tell my health care provider before I take this medicine? They need to know if you have any of these conditions: brain tumor Crohn's disease, inflammatory bowel disease, or ulcerative colitis drink more than 3 alcohol containing drinks per day drug abuse or addiction head injury heart or circulation problems kidney disease or problems going to the bathroom liver disease lung disease, asthma, or breathing problems an unusual or allergic reaction to acetaminophen, oxycodone, other opioid analgesics, other medicines, foods, dyes, or preservatives or trying to get breast-feeding What should I watch for while using this medicine? Tell your doctor or health medicare sales representative if your pain does not go away, if it gets worse, or if you have new or a different type of pain. You may develop tolerance to the medicine. Tolerance means that you will need a higher dose of the medication for pain relief. Tolerance is normal and is expected if you take this medicine for a long time. Do not suddenly stop taking your medicine because you may develop a severe reaction. Your body becomes used to the medicine. This does NOT mean you are addicted. Addiction is a behavior related to getting and using a drug for a non-medical reason. If you have pain, you have a medical reason to take pain medicine. Your doctor will tell you how much medicine to take. If your doctor wants you to stop the medicine, the dose will be slowly lowered over time to avoid any side effects. You may get drowsy or dizzy. Do not drive, use machinery, or do anything that needs mental alertness until you know how this medicine affects you. Do not stand or sit up quickly, especially if you are an older patient. This reduces the risk of dizzy or fainting spells. Alcohol may interfere with the effect of this medicine. Avoid alcoholic drinks. There are different types of narcotic medicines (opiates) for pain. If you take more than one type at the same time, you may have more side effects. Give your health care provider a list of all medicines you use. Your doctor will tell you how much medicine to take. Do not take more medicine than directed. Call emergency for help if you have problems breathing. The medicine will cause constipation. Try to have a bowel movement at least every 2 to 3 days. If you do not have a bowel movement for 3 days, call your doctor or health medicare sales representative. Do not take Tylenol (acetaminophen) or medicines that have acetaminophen with this medicine. Too much acetaminophen can be very dangerous. Many nonprescription medicines contain acetaminophen. Always read the labels carefully to avoid taking more acetaminophen. You have been given the following additional information: Fracture, Finger (Closed) Hypertension, Established Oxycodone Hydrochloride, Acetaminophen Oral tablet Limit use of your left hand for seven days. Do not work for seven days. (Electronically signed by Isha Hernandez P.A.-C 12/27/2016 14:34)
--- NOTE | 2016-12-27 14:34 | ED MAR SUMMARY ---
..... Medication Administration Record [facility] [address] [place] [address] Patient: JUSTINA HOUGH Visit ID: [id number] 46y, M Weight: 83.9 kg Height/Length: 68 in BMI: 28.1 ALLERGIES: Hydrocodone Given 14:17 12/27/2016 Vianney Willoughby R.N. Medication Administered: PERCOCET [PO] (OXYCODONE-ACETAMINOPHEN), Dose: 1 tab 10/650 mg Tablets PO. Medication Ordered: Percocet PO 5/325 mg (HIGH ALERT MEDICATION, NOW).
--- NOTE | 2016-12-27 14:34 | ED MAR SUMMARY ---
..... Medication Administration Record [facility] [address] [place] [address] Patient: JUSTINA HOUGH Visit ID: [id number] 46y, M Weight: 83.9 kg Height/Length: 68 in BMI: 28.1 ALLERGIES: Hydrocodone Given 14:17 12/27/2016 Vianney Willoughby R.N. Medication Administered: PERCOCET [PO] (OXYCODONE-ACETAMINOPHEN), Dose: 1 tab 10/650 mg Tablets PO. Medication Ordered: Percocet PO 5/325 mg (HIGH ALERT MEDICATION, NOW).
--- NOTE | 2016-12-27 14:34 | ED MED RECONCILIATION SUMMARY ---
Patient: JUSTINA HOUGH Medication Reconciliation Report [facility] VisitID: [id number] [address] [place] [address] 46y, M Registration Date/Time: 12/27/2016 Weight: 83.9 kg Height/Length: 68 in. BMI: 28.1 ALLERGIES: Hydrocodone The patient's Home Medications are listed below: THE FOLLOWING MEDICATIONS NEED TO BE RECONCILED: Hydrochlorothiazide Oral The source(s) of the original Home Medication information: Not obtained. The following Medications were given to the patient in the Emergency Department: Percocet [PO] PO 1 tab, administered: 12/27/2016 2:17:00 PM The following Medications were prescribed to the patient: Ibuprofen 800 mg tablets: take 1 tablet orally every 8 hours as needed for pain. Dispense ten (10). No refill. -- Isha Hernandez, P.A.-C Percocet 5 mg/325 mg: take 1 tablet orally every 6 hours as needed for pain. Dispense five (5). No refill. Substitution is permissible. -- Isha Hernandez, P.A.-C
--- NOTE | 2016-12-27 14:34 | ED MED RECONCILIATION SUMMARY ---
Patient: JUSTINA HOUGH Medication Reconciliation Report [facility] VisitID: [id number] [address] [place] [address] 46y, M Registration Date/Time: 12/27/2016 Weight: 83.9 kg Height/Length: 68 in. BMI: 28.1 ALLERGIES: Hydrocodone The patient's Home Medications are listed below: THE FOLLOWING MEDICATIONS NEED TO BE RECONCILED: Hydrochlorothiazide Oral The source(s) of the original Home Medication information: Not obtained. The following Medications were given to the patient in the Emergency Department: Percocet [PO] PO 1 tab, administered: 12/27/2016 2:17:00 PM The following Medications were prescribed to the patient: Ibuprofen 800 mg tablets: take 1 tablet orally every 8 hours as needed for pain. Dispense ten (10). No refill. -- Isha Hernandez, P.A.-C Percocet 5 mg/325 mg: take 1 tablet orally every 6 hours as needed for pain. Dispense five (5). No refill. Substitution is permissible. -- Isha Hernandez, P.A.-C
== END 2016-12-27 14:17 | disposition home or self-care (01) ==
LOC: ED SRH 11:46
DX: S62.627A Displaced fracture of middle phalanx of left little finger, initial encounter for closed fracture (principal); S62.605A Fracture of unspecified phalanx of left ring finger, initial encounter for closed fracture; X50.0XXA Overexertion from strenuous movement or load, initial encounter; Y93.9 Activity, unspecified; Y92.009 Unspecified place in unspecified non-institutional (private) residence as the place of occurrence of the external cause; Y99.9 Unspecified external cause status; I10 Essential (primary) hypertension

== ENCOUNTER 2017-03-18 10:53 | Emergency (ER) | payer OTHER ==
--- NOTE | 2017-03-18 11:37 | ED CLINICAL REPORT ---
Clinical Report - Physicians/Mid Levels [facility] [address] [place] [address] 03/18/2017 10:54 [id number] Time Seen: 11:01; initial patient contact. Arrived- By private vehicle. Historian- patient. HISTORY OF PRESENT ILLNESS Chief Complaint: Injury to the left ankle. The injury happened last night. (unknown). Occurred at home. Patient is experiencing moderate pain. Patient denies injury to the head or neck. REVIEW OF SYSTEMS The patient complains of pain on weight bearing. He has had swelling. No tingling, weakness or numbness. All systems otherwise negative, except as recorded above. PAST HISTORY Contusion. Fall. Back Pain. Back Injury. Lumbar Strain. Lumbar Radiculopathy. Sciatica. Sprain. Rib Fracture. Cervical Strain. Myofascial Strain. Muscle Strain, Upper Extremity. Hypertension. Surgeries: Eye surgery. SOCIAL HISTORY Occasional alcohol use. History of drug use: marijuana. ADDITIONAL NOTES The nursing notes have been reviewed. PHYSICAL EXAM Appearance: Alert. Oriented X3. No acute distress. Skin: Skin intact. Skin warm and dry. Extremities: Ankle stable. Left ankle: moderate tenderness and swelling. Limited ROM secondary to pain (diminished plantar flexion, dorsiflexion, inversion and eversion). Neurovascular intact distally. No ligamentous laxity present. No erythema, ecchymosis or deformity. No signs of infection present in the feet or ankles. Foot and ankle exam otherwise negative. Extremities otherwise negative. Neuro, Vascular and Tendons: Vascular status intact. Sensation intact. Motor intact. Tendon function intact. Neuro: Oriented X 3. No motor deficit. No sensory deficit. LABS, X-RAYS, AND EKG Lt Ankle X-ray: No fracture. Normal alignment. No bony lesion, air in the soft tissue or foreign body. Joint spaces normal. Mild soft tissue swelling diffusely. Views: 3 view ankle series. Technique: good. The X-rays were independently viewed by me and interpreted contemporaneously by me. Prior films were not available for comparison. Interpretation time: 11:35. PROGRESS AND PROCEDURES Disposition: Discharged home in good and improved condition. Condition: good. 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 No tophus. INSTRUCTIONS Apply ice for 20 minutes four times a day until better. Don't apply ice directly to skin. (Discuss with your Dr. about potentially changing your BP medication as it is known to increase gout flair-ups). Your Current Medications: CONTINUE TAKING THE FOLLOWING MEDICATIONS: Hydrochlorothiazide Oral : 12.5 mg daily. Prescription Medications: Colchicine 0.6 mg tablets: take 1 tablet orally every 1-2 hours. Do not take more than 4 mg in one day. Dispense twenty (20). No refills. Follow-up: Follow up with your doctor in about three days. Call for an appointment. Blood pressure screening was not performed during this visit because the patient has an active diagnosis of hypertension. (Electronically signed by Raul Zafar Dr. 03/18/2017 12:04)
--- NOTE | 2017-03-18 11:37 | ED NURSING NOTES ---
Clinical Report - Nurses [facility] [address] [place] [address] 03/18/2017 10:54 Patient: JUSTINA HOUGH TRIAGE Triage time 1100. Acuity: LEVEL 4. Chief Complaint: LEFT LOWER EXTREMITY PAIN and SWELLING. Alert. --11:15 Sofía Stewart R.N. 11:10 03/18/17. BP: 131/91. HR: 108. RR: 20. O2 saturation: 100%. Temp: 98.4 F. Pain level now: 07/05. --11:16 Sofía Stewart R.N. 11:05. ( Pt states he ran out of Percocet for his past finger surgery.). --11:18 Sofía Stewart R.N. Weight: 83.9 kg stated. Height/Length: 68 inches Per Patient. BMI: 28.1. --11:15 Sofía Stewart R.N. Medications Hydrochlorothiazide Oral 12.5 mg, daily. --11:11 Sofía Stewart R.N. Allergies Hydrocodone.(rash) --11:11 Sofía Stewart R.N. History Arrived by private vehicle. Historian: patient. Accompanied by (girlfriend). Primary physician (Adan Murry). An injury may have occurred. This occurred (Pt states he woke up with left ankle pain, and doesn't remember any injury). 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 SOCIAL HX: Regular alcohol use; consumes four liquor. (every other day). The patient was not exposed to MRSA. --11:15 Sofía Stewart R.N. PROBLEMS: Fractured Phalanx (Finger). Back Injury. Lumbar Strain. Lumbar Radiculopathy. Sciatica. Rib Fracture. Cervical Strain. Myofascial Strain. Muscle Strain, Upper Extremity. Hypertension. --11:13 Sofía Stewart R.N. ADDITIONAL SURGERIES: Eye surgery. Left 5th digit repairs x 3. --11:14 Sofía Stewart R.N. Interventions ID band on patient. To room. --11:15 Sofía Stewart R.N. PHYSICAL ASSESSMENT 11:18 03/18/17. EXTREMITIES: Left ankle: tenderness. --11:18 Sofía Stewart R.N. NURSING PROGRESS NOTES 11:15. Patient identifiers checked. Call light placed in reach. Bed placed in lowest position. Patient ready for evaluation- chart flagged. --11:19 Sofía Stewart R.N. 11:48 03/18/2017 Motrin PO 800 mg given. Allergies verified and confirmed 5 rights. --11:58 Sofía Stewart R.N. DISPOSITION / DISCHARGE Departure time: 12:00. Condition at departure: unchanged. ( VS's deferred.). No learning barriers present. Discharge instructions provided and reviewed with refrigeration supervisor and the patient. Reviewed medication(s) information. Prescription(s) given to the patient. Reviewed referral to family practice for followup. Verbalized understanding. Written instructions provided. ( Pt requesting more pain medication. Explained to patient that the prescription given to him will help his pain, also.). The patient was discharged home and accompanied by refrigeration supervisor. He left the Emergency Department in a wheelchair and via private vehicle. Historical Site Guide driving. --12:02 Sofía Stewart R.N. 11:50. ( [place] form reviewed.). --12:10 Sofía Stewart R.N. Locked/Released at 03/18/2017 12:11 by Sofía Stewart R.N.
--- NOTE | 2017-03-18 11:37 | ED ORDER SUMMARY ---
..... Patient: JUSTINA HOUGH OrderSheet [facility] VisitID: [id number] [address] [place] [address] 46y, M Registration Date/Time: 03/18/2017 ORDER SHEET Weight: 83.9 kg (stated) Allergies: Hydrocodone GENERAL ORDERS: Ankle 3 or 4V Left Urgent (11:10 03/18/2017 Mojgan Kiran) ([facility] 11:12 Ani) (12:11 Marcy R.N.) MEDICATION ORDERS: Motrin PO 800 mg (NOW) (11:13 03/18/2017 Mojgan Kiran) (11:58 Marcy R.N.) IV FLUIDS: ORDER SHEET NOTES: [Electronically signed by Raul Zafar Dr. (12:04 03/18/2017)] [Electronically signed by Sofía Stewart R.N. (12:03/18/2017)] [Electronically locked/signed by Sofía Stewart R.N. (12:03/18/2017)]
--- NOTE | 2017-03-18 11:37 | ED NURSING NOTES ---
Clinical Report - Nurses [facility] [address] [place] [address] 03/18/2017 10:54 Patient: JUSTINA HOUGH TRIAGE Triage time 1100. Acuity: LEVEL 4. Chief Complaint: LEFT LOWER EXTREMITY PAIN and SWELLING. Alert. --11:15 Sofía Stewart R.N. 11:10 03/18/17. BP: 131/91. HR: 108. RR: 20. O2 saturation: 100%. Temp: 98.4 F. Pain level now: 07/05. --11:16 Sofía Stewart R.N. 11:05. ( Pt states he ran out of Percocet for his past finger surgery.). --11:18 Sofía Stewart R.N. Weight: 83.9 kg stated. Height/Length: 68 inches Per Patient. BMI: 28.1. --11:15 Sofía Stewart R.N. Medications Hydrochlorothiazide Oral 12.5 mg, daily. --11:11 Sofía Stewart R.N. Allergies Hydrocodone.(rash) --11:11 Sofía Stewart R.N. History Arrived by private vehicle. Historian: patient. Accompanied by (girlfriend). Primary physician (Adan Murry). An injury may have occurred. This occurred (Pt states he woke up with left ankle pain, and doesn't remember any injury). 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 SOCIAL HX: Regular alcohol use; consumes four liquor. (every other day). The patient was not exposed to MRSA. --11:15 Sofía Stewart R.N. PROBLEMS: Fractured Phalanx (Finger). Back Injury. Lumbar Strain. Lumbar Radiculopathy. Sciatica. Rib Fracture. Cervical Strain. Myofascial Strain. Muscle Strain, Upper Extremity. Hypertension. --11:13 Sofía Stewart R.N. ADDITIONAL SURGERIES: Eye surgery. Left 5th digit repairs x 3. --11:14 Sofía Stewart R.N. Interventions ID band on patient. To room. --11:15 Sofía Stewart R.N. PHYSICAL ASSESSMENT 11:18 03/18/17. EXTREMITIES: Left ankle: tenderness. --11:18 Sofía Stewart R.N. NURSING PROGRESS NOTES 11:15. Patient identifiers checked. Call light placed in reach. Bed placed in lowest position. Patient ready for evaluation- chart flagged. --11:19 Sofía Stewart R.N. 11:48 03/18/2017 Motrin PO 800 mg given. Allergies verified and confirmed 5 rights. --11:58 Sofía Stewart R.N. DISPOSITION / DISCHARGE Departure time: 12:00. Condition at departure: unchanged. ( VS's deferred.). No learning barriers present. Discharge instructions provided and reviewed with speech pathology supervisor and the patient. Reviewed medication(s) information. Prescription(s) given to the patient. Reviewed referral to family practice for followup. Verbalized understanding. Written instructions provided. ( Pt requesting more pain medication. Explained to patient that the prescription given to him will help his pain, also.). The patient was discharged home and accompanied by speech pathology supervisor. He left the Emergency Department in a wheelchair and via private vehicle. Mental Hygiene Consultant driving. --12:02 Sofía Stewart R.N. 11:50. ( [place] form reviewed.). --12:10 Sofía Stewart R.N. Locked/Released at 03/18/2017 12:11 by Sofía Stewart R.N.
--- NOTE | 2017-03-18 11:37 | ED CLINICAL REPORT ---
Clinical Report - Physicians/Mid Levels [facility] [address] [place] [address] 03/18/2017 10:54 [id number] Time Seen: 11:01; initial patient contact. Arrived- By private vehicle. Historian- patient. HISTORY OF PRESENT ILLNESS Chief Complaint: Injury to the left ankle. The injury happened last night. (unknown). Occurred at home. Patient is experiencing moderate pain. Patient denies injury to the head or neck. REVIEW OF SYSTEMS The patient complains of pain on weight bearing. He has had swelling. No tingling, weakness or numbness. All systems otherwise negative, except as recorded above. PAST HISTORY Contusion. Fall. Back Pain. Back Injury. Lumbar Strain. Lumbar Radiculopathy. Sciatica. Sprain. Rib Fracture. Cervical Strain. Myofascial Strain. Muscle Strain, Upper Extremity. Hypertension. Surgeries: Eye surgery. SOCIAL HISTORY Occasional alcohol use. History of drug use: marijuana. ADDITIONAL NOTES The nursing notes have been reviewed. PHYSICAL EXAM Appearance: Alert. Oriented X3. No acute distress. Skin: Skin intact. Skin warm and dry. Extremities: Ankle stable. Left ankle: moderate tenderness and swelling. Limited ROM secondary to pain (diminished plantar flexion, dorsiflexion, inversion and eversion). Neurovascular intact distally. No ligamentous laxity present. No erythema, ecchymosis or deformity. No signs of infection present in the feet or ankles. Foot and ankle exam otherwise negative. Extremities otherwise negative. Neuro, Vascular and Tendons: Vascular status intact. Sensation intact. Motor intact. Tendon function intact. Neuro: Oriented X 3. No motor deficit. No sensory deficit. LABS, X-RAYS, AND EKG Lt Ankle X-ray: No fracture. Normal alignment. No bony lesion, air in the soft tissue or foreign body. Joint spaces normal. Mild soft tissue swelling diffusely. Views: 3 view ankle series. Technique: good. The X-rays were independently viewed by me and interpreted contemporaneously by me. Prior films were not available for comparison. Interpretation time: 11:35. PROGRESS AND PROCEDURES Disposition: Discharged home in good and improved condition. Condition: good. 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 No tophus. INSTRUCTIONS Apply ice for 20 minutes four times a day until better. Don't apply ice directly to skin. (Discuss with your Dr. about potentially changing your BP medication as it is known to increase gout flair-ups). Your Current Medications: CONTINUE TAKING THE FOLLOWING MEDICATIONS: Hydrochlorothiazide Oral : 12.5 mg daily. Prescription Medications: Colchicine 0.6 mg tablets: take 1 tablet orally every 1-2 hours. Do not take more than 4 mg in one day. Dispense twenty (20). No refills. Follow-up: Follow up with your doctor in about three days. Call for an appointment. Blood pressure screening was not performed during this visit because the patient has an active diagnosis of hypertension. (Electronically signed by Raul Zafar Dr. 03/18/2017 12:04)
--- NOTE | 2017-03-18 11:37 | ED ORDER SUMMARY ---
..... Patient: JUSTINA HOUGH OrderSheet [facility] VisitID: [id number] [address] [place] [address] 46y, M Registration Date/Time: 03/18/2017 ORDER SHEET Weight: 83.9 kg (stated) Allergies: Hydrocodone GENERAL ORDERS: Ankle 3 or 4V Left Urgent (11:10 03/18/2017 Mojgan Kiran) ([facility] 11:12 Ani) (12:11 Marcy R.N.) MEDICATION ORDERS: Motrin PO 800 mg (NOW) (11:13 03/18/2017 Mojgan Kiran) (11:58 Marcy R.N.) IV FLUIDS: ORDER SHEET NOTES: [Electronically signed by Raul Zafar Dr. (12:04 03/18/2017)] [Electronically signed by Sofía Stewart R.N. (12:03/18/2017)] [Electronically locked/signed by Sofía Stewart R.N. (12:03/18/2017)]
--- NOTE | 2017-03-18 11:59 | DIAGNOSTIC IMAGING REPORT ---
PROCEDURE: XR ANKLE 3 OR 4 VIEWS - LEFT INDICATION: PAIN TECHNIQUE: Four views. COMPARISON: None. FINDINGS: No fracture dislocation. Normal ankle mortise. Mild soft tissue swelling. IMPRESSION: 1. Mild soft tissue swelling.
--- NOTE | 2017-03-18 12:12 | ED MED RECONCILIATION SUMMARY ---
Patient: JUSTINA HOUGH Medication Reconciliation Report [facility] VisitID: [id number] [address] [place] [address] 46y, M Registration Date/Time: 03/18/2017 Weight: 83.9 kg Height/Length: 68 in. BMI: 28.1 ALLERGIES: Hydrocodone The patient's Home Medications are listed below: CONTINUE TAKING THE FOLLOWING MEDICATIONS: Hydrochlorothiazide Oral 12.5 mg, daily The source(s) of the original Home Medication information: Not obtained. The following Medications were given to the patient in the Emergency Department: Motrin [PO] PO 800 mg, administered: 03/18/2017 11:48:00 AM The following Medications were prescribed to the patient: Colchicine 0.6 mg tablets: take 1 tablet orally every 1-2 hours. Do not take more than 4 mg in one day. Dispense twenty (20). No refills. -- Raul Zafar Dr.
--- NOTE | 2017-03-18 12:12 | ED MED RECONCILIATION SUMMARY ---
Patient: JUSTINA HOUGH Medication Reconciliation Report [facility] VisitID: [id number] [address] [place] [address] 46y, M Registration Date/Time: 03/18/2017 Weight: 83.9 kg Height/Length: 68 in. BMI: 28.1 ALLERGIES: Hydrocodone The patient's Home Medications are listed below: CONTINUE TAKING THE FOLLOWING MEDICATIONS: Hydrochlorothiazide Oral 12.5 mg, daily The source(s) of the original Home Medication information: Not obtained. The following Medications were given to the patient in the Emergency Department: Motrin [PO] PO 800 mg, administered: 03/18/2017 11:48:00 AM The following Medications were prescribed to the patient: Colchicine 0.6 mg tablets: take 1 tablet orally every 1-2 hours. Do not take more than 4 mg in one day. Dispense twenty (20). No refills. -- Raul Zafar Dr.
--- NOTE | 2017-03-18 12:12 | ED MAR SUMMARY ---
..... Medication Administration Record [facility] [address] [place] [address] Patient: JUSTINA HOUGH Visit ID: [id number] 46y, M Weight: 83.9 kg Height/Length: 68 in BMI: 28.1 ALLERGIES: Hydrocodone Given 11:48 03/18/2017 Sofía Stewart R.N. Medication Administered: MOTRIN [PO], Dose: 800 mg PO. Medication Ordered: Motrin PO 800 mg (NOW).
--- NOTE | 2017-03-18 12:12 | ED MAR SUMMARY ---
..... Medication Administration Record [facility] [address] [place] [address] Patient: JUSTINA HOUGH Visit ID: [id number] 46y, M Weight: 83.9 kg Height/Length: 68 in BMI: 28.1 ALLERGIES: Hydrocodone Given 11:48 03/18/2017 Sofía Stewart R.N. Medication Administered: MOTRIN [PO], Dose: 800 mg PO. Medication Ordered: Motrin PO 800 mg (NOW).
--- NOTE | 2017-03-18 12:12 | ED DISCHARGE INSTRUCTIONS ---
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 No tophus. INSTRUCTIONS Apply ice for 20 minutes four times a day until better. Don't apply ice directly to skin. (Discuss with your Dr. about potentially changing your BP medication as it is known to increase gout flair-ups). Your Current Medications: CONTINUE TAKING THE FOLLOWING MEDICATIONS: Hydrochlorothiazide Oral : 12.5 mg daily. Prescription Medications: Colchicine 0.6 mg tablets: take 1 tablet orally every 1-2 hours. Do not take more than 4 mg in one day. Dispense twenty (20). No refills. Follow-up: Follow up with your doctor in about three days. Call for an appointment. Blood pressure screening was not performed during this visit because the patient has an active diagnosis of hypertension. ADDITIONAL INFORMATION Gout Gout or "gouty arthritis" is an inflammation of a joint due to a build-up of gout crystals in the joint fluid. This occurs when there is an excess uric acid (a normal waste product) in the body. Uric acid builds up in the body when the kidneys are unable to filter enough of it from the blood. This may occur with aging or kidney disease. Gout occurs more often in persons with obesity, diabetes, hypertension, high fats in the blood. It may be present in other family members. Alcohol and certain foods (such as shellfish and alcohol) may increase uric acid levels in the blood and cause a gout attack. Gout causes a hot, red, swollen and painful joint. If you have had one episode of gout, you are likely to have another. An acute attack of gout can be treated with anti-inflammatory and other medicine. If these attacks become frequent it may be necessary to take a daily medicine to help the kidney remove uric acid from the body. Home Care: Apply an ice pack (ice cubes in a plastic bag, wrapped in a towel) over the injured area for 20 minutes every 1-2 hours the first day for pain relief. Continue this 3-4 times a day until the pain and swelling goes away. Avoid alcohol and foods listed below (see Prevention) during a gout attack. Drink extra fluid to help flush the uric acid through your kidneys. Rest painful joints. If gout affects the joints of your foot or leg, you may want to use crutches for the first few days to keep from bearing weight on the foot or leg. Take anti-inflammatory medicine as directed. You may be prescribed Indocin (indomethacin), or nabx-phz-bcxsoqi drugs such as ibuprofen (Motrin, Advil) or naproxen (Naprosyn or Aleve). Tylenol will not be as effective since it is not an anti-inflammatory drug. If narcotic pain medicines have been prescribed, they should be used in addition to the anti-inflammatory drugs and only for severe pain. Avoid aspirin since this may slow down the flushing of the uric acid through your kidneys. Preventing Future Attacks: Minimize or avoid alcohol use. Excess alcohol intake can cause a gout attack. Foods high in purine form uric acid in the body and increase your risk for a gout attack. Therefore, avoid the following foods: certain seafoods (anchovies, sardines, shrimp, scallops, barrett, mackerel); wild game, meat extracts and meat gravies; organ foods (kidney, liver, calf brain, sweetbreads). Avoid drinks with fructose (a type of sugar). Limit the following foods to one serving a day: red meat and pork, fish, poultry, dried beans and peas, asparagus, mushrooms, cauliflower and spinach. If you are overweight, this is a risk factor and you should talk to your doctor about a weight reduction plan. However, avoid fasting or extreme low calorie diets (less than 900 wesley/day) which will increase uric acid levels in the body. If you are diabetic or have high blood pressure, work with your doctor to achieve control of these conditions. Avoid injury to the involved joint since this can lead to a gout attack. Colchicine can be effective in stopping a gout attack. If you were given a prescription of this medicine for future use, begin it at the first sign of an attack. Colchicine may cause nausea, vomiting, diarrhea and other side effects. Follow Up with your doctor as advised or if you are not improving after three days of treatment. Get Prompt Medical Attention if any of the following occur: Fever over 100.4F (38.0C) with worsening joint pain Increasing redness around the joint Pain developing in another joint Repeated vomiting, abdominal pain, or blood in the vomit or stool (black or red color) You have been given the following additional information: Gouty Arthritis (Electronically signed by Raul Zafar Dr. 03/18/2017 12:04)
== END 2017-03-18 11:59 | disposition home or self-care (01) ==
LOC: ED SRH 10:53
DX: M10.272 Drug-induced gout, left ankle and foot (principal); M13.172 Monoarthritis, not elsewhere classified, left ankle and foot; I10 Essential (primary) hypertension; Z79.899 Other long term (current) drug therapy; Z88.5 Allergy status to narcotic agent